=== PATIENT | male | born 1970 | race Caucasian/White ===

== ENCOUNTER 2019-06-03 10:58 | Inpatient (IN) ==
[2019-06-03 11:49] LABS: BASO# 0.04 X1000 (0.0-0.2); BASO% 0.6 % (0.0-0.8); EOS# 0.12 X1000 (0.0-0.7); EOS% 1.9 % (0.0-10.0); HEMOGLOBIN 15.6 g/dL (14.0-18.0); IMM GRAN# 0.03 X1000 (0.0-0.04); IMM GRAN% 0.5 % (0.0-0.5); LYMPH# 1.39 X1000 (1.2-3.4); LYMPH% 22.3 % (20.5-51.1); MCH 30.2 PG (27-31); MCHC 33.9 g/dL (33-37); MONO# 0.43 X1000 (0.11-0.59); MONO% 6.9 % (1.7-9.3); MPV 10.3 FL (7.4-10.4); NEUT# 4.22 X1000 (1.4-6.5); NEUT% 67.8 % (42.2-75.2); PLT 193 X1000 (130-400); RBC 5.17 XMIL (4.7-6.1); RDW 12.3 % (11.5-14.5); WBC 6.23 X1000 (4.8-10.8)
[2019-06-03 12:15] LABS: AGAP 13; ALBUMIN 4.7 g/dL (3.5-5.0); ALKALINE PHOSPHATASE 69 U/L (32-122); BUN 13 mg/dL (8-22); CALCIUM 9.2 mg/dL (8.8-10.2); CHLORIDE 101 mmol/L (98-107); COSMO 271; CREATININE 0.7 mg/dL (0.7-1.2); ESTIMATED GFR > 60; GLUCOSE 109 mg/dL (70-104); GOT 29 U/L (10-34); GPT 43 U/L (10-44); LIPASE 48 U/L (13-60); POTASSIUM 4.1 mmol/L (3.5-5.1); SODIUM 135 mmol/L (136-145); TCO2 21 mmol/L (25-35); TOTAL PROTEIN 7.6 g/dL (6.3-8.3)
--- NOTE | 2019-06-03 12:20 | PROVIDER DOCUMENTATION ---
HPI-Abdominal Pain/GI Problem - General Chief Complaint: Abdominal Pain Stated Complaint: FLANK PAIN-RIGHT SIDE Time Seen by Provider: 06/03/19 11:27 Source: patient Allergies/Adverse Reactions: Patient Allergies Allergy/AdvReac Type Severity Reaction Status Date / Time No Known Allergies Allergy Verified 01/19/14 06:36 Home Medications: Home Medication List Medication Instructions Recorded Confirmed Last Taken Type Omeprazole 20 mg PO DAILY 01/19/14 06/03/19 01/17/14 History - History of Present Illness-ABD Nature of Presenting Problems: Patient is a 49yo M who presents with complaints of epigastric/RUQ abdominal pain and nausea that began just [employer]IOR [employer]EF[employer]. Reports it awoke him from sleep. States last BM was yesterday and was normal. Reports hx of kidney stones but reports this pain is different. Denies fever/chills, vomiting/diarrhea, CP, or SOB. Non- toxic in appearance. Abdominal Pain Onset Location: reports: RUQ, epigastric Pain Radiation: reports: no radiation Quality of Pain: reports: aching, pressure Severity in ED: reports: mild Onset/Duration: reports: just prior to arrival Timing: reports: still present, improving Activities at Onset: reports: sleep Modifying Factors: improves with: nothing Associated Symptoms: reports: nausea. denies: arm pain, back/neck pain, cough, diarrhea, fever/chills, shortness of breath, syncope, vomiting Last BM: last night Dark Stools Present?: reports: none noticed Rectal Bleeding: reports: none # of Diarrhea Episodes: 0 Rectal Pain: reports: none # of Vomiting Episodes: 0 Emesis Description: reports: none Bruising or Bleeding Gums?: No Similar Symptoms Previously?: No Recently seen or treated by another doctor?: No Review of Systems - Adult - REVIEW OF SYSTEMS - ADULT Constitutional: reports: no symptoms reported. denies: chills, fever Eyes: reports: no symptoms reported Ears, Nose, Mouth & Throat: reports: no symptoms reported Cardiovascular: reports: no symptoms reported. denies: chest pain, palpitations Respiratory: reports: no symptoms reported. denies: cough, shortness of breath Gastrointestinal: reports: see HPI, abdominal pain, nausea. denies: diarrhea, vomiting Genitourinary: reports: no symptoms reported. denies: dysuria Musculoskeletal: reports: no symptoms reported Integumentary: reports: no symptoms reported Neurological: reports: no symptoms reported Psychiatric: reports: no symptoms reported Endocrine: reports: no symptoms reported Past History - Adult - PAST MEDICAL HISTORY-ADULT Review of Records: reports: Nursing Assessment Review, Medications Reviewed Major Childhood Illnesses: reports: denies history Cardiovascular: reports: denies history Respiratory: reports: denies history Gastrointestinal: reports: denies history Obstetrical/Gynecological: reports: denies history Genitourinary: reports: denies history Musculoskeletal: reports: denies history Neurological: reports: denies history Endocrine/Immune: reports: denies history Other Conditions: reports: denies history - IMMUNIZATION STATUS Childhood Immunizations: See Nurse Assessment Flu Vaccine: See Nurse Assessment - FAMILY HISTORY Family History: reviewed, not pertinent - SOCIAL HISTORY Smoking: denies Physical Exam-General - PHYSICAL EXAM-ADULT Initial Vital Signs Reviewed: Yes - CONSTITUTIONAL General Appearance: appears well, alert, no apparent distress. negative: lethargic, slow to respond, combative - EYES Eyes: PERRL/EOMI, pink conjunctivae. negative: EOM palsy, scleral icterus - HEAD, EARS, NOSE, MOUTH & THROAT HENMT: normocephalic/atraumatic, moist mucous membranes. negative: angioedema - NECK Neck: full range of motion, supple, normal inspection - RESPIRATORY Respiratory: chest non-tender, lungs clear, normal breath sounds, no pleuratic chest pain, no respiratory distress, no accessory muscle use. negative: crackles, rales, rhonchi, stridor, wheezing - CARDIOVASCULAR Cardiovascular: regular rate, rhythm, no gallop - GASTROINTESTINAL (ABDOMEN) Abdominal Exam: normal bowel sounds, soft, tenderness (RUQ mild TTP). negative: rigid, rebound - MUSCULOSKELETAL Back Exam: normal inspection, no CVA tenderness, no vertebral tenderness Extremity: normal range of motion, non-tender, normal gait, normal inspection, pelvis stable - SKIN Integumentary: normal color, warm/dry. negative: cyanosis, jaundice, mottled, pallor - NEUROLOGIC Neurologic: grossly normal. negative: abnormal gait, aphasia, EOM palsy - PSYCHIATRIC Psych/Mental Status: normal mood/affect, normal thought content, normal thought process, oriented x 3 Progress - PLAN OF CARE/RESULTS Progress/Plan/Lab Results: Vital Signs - 8 hr 06/03/19 11:11 Temperature 97.9 F Pulse Rate 75 Respiratory Rate 18 Blood Pressure 145/96 O2 Sat by Pulse Oximetry 97 Laboratory Results - last 24 hr 06/03/19 06/03/19 11:42 11:42 WBC 6.23 RBC 5.17 Hgb 15.6 Hct 46.0 MCV 89.0 MCH 30.2 MCHC 33.9 RDW Std Deviation 12.3 Plt Count 193 MPV 10.3 Immature Gran % (Auto) 0.5 Neut % (Auto) 67.8 Lymph % (Auto) 22.3 Daggett % (Auto) 6.9 Eos % (Auto) 1.9 Baso % (Auto) 0.6 Immature Gran # (Auto) 0.03 Neut # (Auto) 4.22 Lymph # (Auto) 1.39 Daggett # (Auto) 0.43 Eos # (Auto) 0.12 Baso # (Auto) 0.04 Amylase 39 Orders Category Date Time Status Saline Loc NOW Care 06/03/19 11:49 Active AMYLASE [CHEM] Stat Lab 06/03/19 11:42 Completed CBC WITH DIFF [HEME] Stat Lab 06/03/19 11:42 Completed CK PROFILE [SP CHEM] Stat Lab 06/03/19 11:50 Received COMPREHENSIVE METABOLIC PANEL [CHEM] Stat Lab 06/03/19 11:42 Received LIPASE [CHEM] Stat Lab 06/03/19 11:42 Received TROPONIN T Stat Lab 06/03/19 11:50 Received URINALYSIS W/POSS RFLX CULT [URINALYSIS] Stat Lab 06/03/19 11:17 Uncollected EKG [EKG] Stat Ther 06/03/19 11:49 Ordered 1431: Fluid around gallbladder on CT. Will consult Surgeon. Lab results, imaging results, and need for admission/surgery discussed with patient who agrees with and verbalizes understanding. Result Diagrams: 06/03/19 11:42 06/03/19 11:42 - REASSESSMENT Reassessment #1 Time Reassessed: 13:00 Status: improving - EKG 1 Time of EKG reading by physician:: 12:05 EKG Read and Signed by:: Erik Luevano EKG Interpretation (*Must complete 3 of following elements*): Normal Rate: 73 Rhythm: NSR Kerrick: normal QRS: normal [place] Interval: normal ST Wave: normal - CT/MRI 1 CT Study: Abdomen, Pelvis Impression: See EMR Report ([facility] - [address] [facility] [facility], [address], [place] [address] [facility] - [address] [place] [address] Department of Imaging Patient: NIC RANDALL Date: 06/03/19#: [id number] : 1970ADM Status: REG [facility]#: [id number] Age/Sex: 49/MRoom/Bed: Loc: P.ED Ordering Physician: Shelby Hammond Family Physician: None,PCP Reason for Procedure: RUQ/epigastric pain + nausea Signed EXAM: CT ABD/PELVIS W/IV CONT ONLY - 06/03/2019 HISTORY: RUQ/epigastric pain + nausea TECHNIQUE: CT abdomen/pelvis with intravenous contrast COMPARISON: 11/10/2015 CT renal stone search without contrast FINDINGS: The visualized lung bases appear clear ex cept for mild dependent atelectasis. There are no substantial abnormalities of the liver, spleen, adrenal glands, or pancreas identified. There is a suggestion of noncalcified gallstones in the gallbladder neck area. There apparently is a small amount of fluid around the gallbladder, but there is no substantial pericholecystic inflammation seen. There is no evidence of biliary ductal dilatation. The bilateral kidneys enhance homogeneously. There are a couple small nonobstructing stones in the upper left kidney. There is no obstructing renal stone or hydronephrosis identified. There are nonspecific small retroperitoneal and mesenteric lymph nodes. There are no substantially enlarged lymph nodes identified. There is no evidence of bowel obstruction. The appendix has air in the lumen and is unremarkable. There is no substantial bowel wall thickening identified. There is no extraluminal gas collection or abscess identified. There is no free air or free fluid identified. There is a pars interarticularis defect noted at L5 on the right. IMPRESSION: Apparent noncalcified gallstones in gallbladder neck. Small amount of fluid around gallbladder. No substantial pericholecystic inflammation. Nonspecific small retroperitoneal and mesenteric lymph nodes. No bowel obstruction. Unremarkable appendix. No abscess. No free air. Small nonobstructing stones in left kidney. No obstructing renal stone or hydronephrosis. Right L5 pars interarticularis defect noted. This exam was performed using automated exposure control, adjustment of mA or kV according to patient size, and/or use of iterative reconstruction technique. Electronically signed by Jamel Soto 06/03/2019 2:13 PM 06/03/19 1413 Interpreting Physician: Jamel Soto MD Dictated Date/Time: 06/03/19 1404 cc: Shelby Villarreal; None,PCP) - CONSULTS/PCP/HOSPITALIST Notification #1 *Consult/PCP/Hospitalist*: Dr. Villasenor, Surgeon Time Discussed: 14:33 Reason/Comments: Fluid around gallbladder Consult Disposition: other (Will look @ CT and call me back with recommendations) #2 Consult: Dr. Villasenor, Surgeon Time Discussed: 14:40 Reason/Comments: Acute cholecystitis Consult Disposition: Admit (Transfer to & admit for surgery) Departure - Departure Date of Disposition Decision: 06/03/19 Time of Disposition Decision: 14:40 DIAGNOSIS: Acute cholecystitis, Nausea alone Abdominal pain Qualifiers: Abdominal location: right upper quadrant Qualified Code(s): R10.11 - Right upper quadrant pain Disposition: ADMITTED INPATIENT 09 Certified Medical Emergency: Emergent Condition: Stable Referrals and Follow-Ups: None,PCP [Primary Care Provider] - - Critical Care Note This patient required my direct & personal management of CC.: No Attestation - Physician/ ALTA Attestation Patient care was provided by Advanced Practice Provider:: Yes Advanced Practice Provider:: Shelby Villarreal Advanced Practice Provider documentation review:: The Mid-level provider documentation, treatment plan and medical decision making was reviewed by the physician who agrees with all treatment and medical decision making by the MLP. The physician spent face to face time with patient:: No Advanced Practice Provider documentation review:: Supervising physician onsite and consulted in the evaluation and care of this patient. The physician did not have a face to face encounter with the patient.
--- NOTE | 2019-06-03 13:07 | EKG Report ---
Test Performed on : 06/03/2019 12:04:16 PM Test Reason : epigastric pain Blood Pressure : / mmHG Vent. Rate : 073 BPM Atrial Rate : 073 BPM P-R Int : 138 ms QRS Dur : 092 ms QT Int : 400 ms P-R-T Axes : 024 034 049 degrees QTc Int : 440 ms Normal sinus rhythm. Normal ECG No previous ECGs available Confirmed by Deniz Whiting MD ([id number]), supervising editor trailer Amy Liriano ([id number]) on 07/12/2019 12:37:54 PM
--- NOTE | 2019-06-03 14:16 | Diag Imaging Result Doc PS360 ---
EXAM: CT ABD/PELVIS W/IV CONT ONLY - 06/03/2019 HISTORY: RUQ/epigastric pain + nausea TECHNIQUE: CT abdomen/pelvis with intravenous contrast COMPARISON: 11/10/2015 CT renal stone search without contrast FINDINGS: The visualized lung bases appear clear except for mild dependent atelectasis. There are no substantial abnormalities of the liver, spleen, adrenal glands, or pancreas identified. There is a suggestion of noncalcified gallstones in the gallbladder neck area. There apparently is a small amount of fluid around the gallbladder, but there is no substantial pericholecystic inflammation seen. There is no evidence of biliary ductal dilatation. The bilateral kidneys enhance homogeneously. There are a couple small nonobstructing stones in the upper left kidney. There is no obstructing renal stone or hydronephrosis identified. There are nonspecific small retroperitoneal and mesenteric lymph nodes. There are no substantially enlarged lymph nodes identified. There is no evidence of bowel obstruction. The appendix has air in the lumen and is unremarkable. There is no substantial bowel wall thickening identified. There is no extraluminal gas collection or abscess identified. There is no free air or free fluid identified. There is a pars interarticularis defect noted at L5 on the right. IMPRESSION: Apparent noncalcified gallstones in gallbladder neck. Small amount of fluid around gallbladder. No substantial pericholecystic inflammation. Nonspecific small retroperitoneal and mesenteric lymph nodes. No bowel obstruction. Unremarkable appendix. No abscess. No free air. Small nonobstructing stones in left kidney. No obstructing renal stone or hydronephrosis. Right L5 pars interarticularis defect noted. This exam was performed using automated exposure control, adjustment of mA or kV according to patient size, and/or use of iterative reconstruction technique. Electronically signed by Jamel Soto 06/03/2019 2:13 PM
[2019-06-03] MEDS ORDERED: ZOSYN 3.375 GM in NS 50 ML IV ONE (14:33)
[2019-06-03 15:33] LABS: URINE SOURCE CLEAN CATCH
[2019-06-03 15:36] LABS: BILIRUBIN URINE NEGATIVE (NEGATIVE); BLOOD URINE NEGATIVE (NEGATIVE); COLOR YELLOW; GLUCOSE URINE NEGATIVE (NEGATIVE); KETONE URINE NEGATIVE (NEGATIVE); LEUKOCYTES URINE NEGATIVE (NEGATIVE); NITRITE URINE NEGATIVE (NEGATIVE); PROTEIN URINE TRACE mg/dL (NEGATIVE); TURBIDITY URINE CLEAR (CLEAR); UROBILINOGEN URINE NORMAL (NORMAL)
[2019-06-03 15:37] LABS: UR EPITHELIAL CELLS <10 /HPF (<10); URINE BACTERIA NEGATIVE /HPF; URINE RBC <10 /HPF (<10); URINE WBC <10 /HPF (<10)
[2019-06-03] MEDS ORDERED: NS 1,000 ML IV ONE (15:51)
[2019-06-03] MEDS ORDERED: ZOFRAN IV PRN (17:27)
[2019-06-03] MEDS ORDERED: MORPHINE IV PRN (17:48)
[2019-06-03] MEDS ORDERED: NORCO-10 PO PRN (17:49)
--- NOTE | 2019-06-03 18:20 | HISTORY AND PHYSICAL ---
HISTORY OF PRESENT ILLNESS: Mr. Lew is a healthy 49-year-old, who awakened this morning with pain in his epigastrium. He actually had worked last night and had lasagna last night. He occasionally has some gastroesophageal reflux symptoms, dyspepsia and burping. He takes omeprazole for that daily. He sought medical attention due to the pain. His CT scan shows a swollen gallbladder with thickened newton consistent with acute cholecystitis. His labs are within normal limits. He has chosen to come in the hospital. PAST MEDICAL HISTORY: His past medical history pertinent for some cervical disk discomfort, some shoulder discomfort for which she sees Dr. Lucio and Dr. Rowland sees him for his neck. PAST SURGICAL HISTORY: He has had a meniscus surgery before. MEDICATIONS: He only takes omeprazole. ALLERGIES: He has no known drug allergies. SOCIAL HISTORY: He does smoke occasionally and drink alcohol socially. Denies illicit drug use. He is employed. FAMILY HISTORY: Noncontributory. REVIEW OF SYSTEMS: Negative in all 10 subsystems except his gastrointestinal tract for which she is admitted. PHYSICAL EXAMINATION: VITAL SIGNS: He is afebrile. Heart rate 63, blood pressure 148/92. No cervical adenopathy. No intraoral lesions. No carotid bruits. LUNGS: Sound clear. HEART: Regular rate and rhythm. ABDOMEN: Soft. He is mildly tender in the right upper quadrant. No peripheral edema. Pedal pulses are present. He is awake, alert and oriented. LABORATORY DATA: White count 6200, hemoglobin 15.6, LFTs are within normal limits. CT scan shows acute cholecystitis. ASSESSMENT: Acute cholecystitis. PLAN: Laparoscopic cholecystectomy. I have discussed the procedure with him. Not certain about when we can do this but he wants to stay and get it done. cc: Esa Villasenor MD
[2019-06-03 22:39] LABS: SP GRAVITY URINE 1.005
[2019-06-04] MEDS ORDERED: DIPRIVAN 1% ONE (11:36)
[2019-06-04] MEDS ORDERED: ZEMURON ONE (11:36)
[2019-06-04] MEDS ORDERED: XYLOCAINE-MPF 2% ONE (11:36)
[2019-06-04] MEDS ORDERED: ZOFRAN ONE ×2 (12:02→13:03)
[2019-06-04] MEDS ORDERED: DECADRON ONE ×2 (12:02→13:03)
[2019-06-04] MEDS ORDERED: VERSED ONE (12:39)
[2019-06-04] MEDS ORDERED: SENSORCAINE-MPF 0.5%/EPI 1:200,000 ONE (12:44)
[2019-06-04] MEDS ORDERED: LR 1,000 ML ONE (12:44)
[2019-06-04] MEDS ORDERED: SODIUM CHLORIDE 0.9% ONE (12:44)
[2019-06-04] MEDS ORDERED: TORADOL ONE (13:03)
[2019-06-04] MEDS ORDERED: NEOSTIGMINE ONE (13:34)
[2019-06-04] MEDS ORDERED: ROBINUL ONE (13:34)
--- NOTE | 2019-06-04 14:04 | OPERATIVE NOTE ---
PROCEDURE DATE: 06/04/2019 PROCEDURE PERFORMED: Laparoscopic cholecystectomy with operative cholangiogram. SURGEON: Esa Villasenor MD. ROUGHER FOR CEMENT: Ryley Magallanes RN. PREOPERATIVE DIAGNOSIS: Chronic calculous cholecystitis. POSTOPERATIVE DIAGNOSIS: Chronic calculous cholecystitis. FINDINGS: The cholangiogram revealed a normal size common duct, free flow in the duodenum. No intraluminal filling defects. DESCRIPTION OF PROCEDURE: Satisfactory general endotracheal anesthesia was achieved. The abdomen was prepped and draped in a sterile fashion. We anesthetized the skin at the base of the umbilicus. We carried our incision down the fascia, scored the fascia, introduced an 11 trocar under direct visualization. We introduced a 5 trocar midclavicular line, a 5 trocar near the anterior axillary line, an 11 mm trocar in the midepigastrium. Insufflation was going through the umbilical trocar site. We placed the patient in reverse Trendelenburg and turned him to the left. We grasped the fundus of the gallbladder, reflected it cephalad, and then began dissecting the triangle of Calot. We obtained a critical view. We clipped the cystic duct near the junction at the gallbladder, incised the cystic duct, introduced a [place] catheter and shot the cholangiogram. The findings above were noted. We removed the cholangiogram catheter, clipped the cystic duct on the opposite side of the cystic ductotomy x2, and transected it. The cystic artery was identified, clipped proximally x2, distally x1, and divided. We then used the cautery spatula to dissect the gallbladder away from the liver. After complete separation of the gallbladder from liver, we changed the videolaparoscope to the mid epigastric trocar, introduced a claw forceps. We grasped the infundibulum and over the gallbladder to the umbilical trocar site. We enlarged the fascial incision enough to deliver the gallbladder out of the abdominal cavity. We looked back. Hemostasis was satisfactory. We aspirated what fluid had collected. We used a John- Prabhjot wound closure for the epigastric trocar site. We desufflated and removed our other trocars. We closed the fascia at the umbilicus with 2-0 Polysorb fascial stitches x2. We added another fascial stitch in the epigastrium as well with a 2-0 Polysorb. We then closed the skin at each incision with 4-0 Polysorb subcuticular stitches. Sterile OpSites were applied. He tolerated it well, was sent to the recovery room in satisfactory condition. cc: Esa Villasenor MD
[2019-06-04] MEDS: DILAUDID ONE ×3 (14:06→14:17)
--- NOTE | 2019-06-04 14:08 | Diag Imaging Result Doc PS360 ---
OPERATIVE CHOLANGIOGRAM - 06/04/2019 INDICATION: CHOLECYSTITS TECHNIQUE: The exam was performed by the patient's surgeon. Total fluoroscopy time was 17 seconds. Two images were obtained. COMPARISON: None FINDINGS: Contrast was infused into the cystic duct. This outlines a normal common bile duct. There is good passage of contrast into the duodenum. A small amount of contrast reflux into the main pancreatic duct which also appeared normal. IMPRESSION: No complication. Electronically signed by Jose Vo 06/04/2019 2:06 PM
[2019-06-04 15:58] VITALS: BP 137/77
--- NOTE | 2019-06-04 17:53 | GENERAL SURGERY PROGRESS NOTE ---
DATE: 06/04/2019 DATE: 06/04/2019 at 5:40 p.m. SUBJECTIVE: He is doing well, taking liquids satisfactorily. He feels good. His pain is controlled. ASSESSMENT/PLAN: The plan will be to discharge him today. We will give him something for pain. He will return to see me in the office in 10 days. Wound care and activity were discussed. cc: Esa Villasenor MD
[2019-06-05] MEDS ORDERED: PRILOSEC PO SCH (09:00)
== END 2019-06-04 18:30 | disposition home or self-care (01) | DRG 419 ==
LOC: P.ED 10:58 → 1N 14:52
PROVIDERS: ADMIT Surgery; ATTEND Surgery